=== PATIENT | female | born 1980 | race Two or more races ===

== ENCOUNTER → 2016-11-02 | Outpatient (CLI) | payer MEDICAID | LOC: FIMAGING 13:57 | PROVIDERS: ATTEND Obstetrics & Gynecology | DX: O09.521 Supervision of elderly multigravida, first trimester (principal); O98.411 Viral hepatitis complicating pregnancy, first trimester; O99.331 Smoking (tobacco) complicating pregnancy, first trimester; B18.2 Chronic viral hepatitis C; F17.200 Nicotine dependence, unspecified, uncomplicated; Z3A.12 12 weeks gestation of pregnancy ==

== ENCOUNTER → 2018-05-18 | Outpatient (CLI) | payer MEDICAID | LOC: FIMAGING 14:50 | PROVIDERS: ATTEND Midwife | DX: O09.521 Supervision of elderly multigravida, first trimester (principal); B19.20 Unspecified viral hepatitis C without hepatic coma; Z3A.12 12 weeks gestation of pregnancy ==

== ENCOUNTER → 2018-07-06 | Outpatient (CLI) | payer MEDICAID | LOC: FIMAGING 12:57 | PROVIDERS: ATTEND Midwife | DX: O09.522 Supervision of elderly multigravida, second trimester (principal); Z3A.19 19 weeks gestation of pregnancy ==

== ENCOUNTER → 2018-08-17 | Outpatient (CLI) | payer MEDICAID | LOC: FIMAGING 14:22 | PROVIDERS: ATTEND Midwife | DX: O09.512 Supervision of elderly primigravida, second trimester (principal); Z3A.25 25 weeks gestation of pregnancy ==